=== PATIENT | female | born 1980 | race African-American/Black ===

== ENCOUNTER 2017-03-23 14:14 | Emergency (ER) | payer OTHER ==
--- NOTE | ~2017-03-23 | CT71 ---
[facility] A Service [facility] RADIOLOGY TEXT RESULTS PATIENT: VERN AYALA LOCATION: SED : 78 UNIT #: [id number] AGE: [address]: Piter Kwan MD SEX: F ORDER DR: [id number] [address] [address] [id number] MR#: [id number] Acc #: [id number] NAME: VERN AYALA : 1980 SEX: F STUDY DATE/TIME: 03/23/2017 13:53 UNIT: SED ROOM: STUDY DESCRIPTION: CT Head Wo Contrast Attending Physician: Piter Kwan M.D. Referring Physician: Piter Kwan M.D. Ordering Physician: Piter Kwan M.D. Primary Care Physician: Gadiel Yarbrough M.D. MEDICAL IMAGING REPORT This report is preliminary unless electronic signature is present. EXAM CT head, 03/23/2017. HISTORY Migraine for 2 weeks. Face swelling right side yesterday. History of migraines. Lupus. TECHNIQUE CT head performed skull base through vertex without intravenous contrast. This CT exam was performed with one or more of the following radiation dose reduction techniques: automatic exposure control, adjustment of mA and/or kV according to patient size, and iterative reconstruction. COMPARISON STUDIES No comparisons. FINDINGS Brainstem unremarkable. Cerebellum and cerebral hemispheres show normal wing matter-white matter differentiation. No hemorrhage. No evidence of acute cortical ischemia. Midline structures are nondisplaced. Basal ganglia intact. Ventricles, cisterns, sulci normal in size and contour. No intra or extraaxial mass effect or abnormal intracranial fluid collection. The intraorbital soft tissues are unremarkable in visualized extent. The visualized paranasal sinuses and mastoid air cells show mucosal thickening in the right maxillary sinus. No indication of acute sinusitis. IMPRESSION 1. Brain appears normal. If patient has ongoing neurologic symptoms, consider follow up imaging. 2. Mucosal thickening right maxillary sinus. No indication of acute sinusitis. [facility] A Service [facility] RADIOLOGY TEXT RESULTS PATIENT: VERN AYALA LOCATION: SED : 78 UNIT #: [id number] AGE: [address]: Piter Kwan MD SEX: F ORDER DR: Dictated by... Jerad Farmer M.D. THIS IS AN ELECTRONICALLY VERIFIED REPORT Jerad Farmer M.D. at 03/27/2017 7:36 AM DARRYL/nhan TD: 03/23/2017 15:53 JOB #: [id number] MEDICAL IMAGING REPORT Page 1 of 1
[~2017-03-23 14:14] MED LIST: FIORINAL CAPSUL1 CAP PO
== END 2017-03-23 15:15 | disposition home or self-care (01) ==
LOC: SED 14:14
DX: G44.209 Tension-type headache, unspecified, not intractable (principal); F17.210 Nicotine dependence, cigarettes, uncomplicated; Z88.8 Allergy status to other drugs, medicaments and biological substances
CPT/HCPCS: 70450; 96372; 99284; J0780; J1200